=== PATIENT | female | born 1990 | race Caucasian/White ===

== ENCOUNTER 2021-11-13 10:20 | Inpatient (IN) | payer OTHER ==
[2021-11-13] MEDS ORDERED: AMPICILLIN - 2 GM in SODIUM CHLORIDE 100 ML IVPB ONE (11:00)
[2021-11-13] MEDS ORDERED: ELECTROLYTE-148 SOLN 1,000 ML IV SCH (11:00)
[2021-11-13] MEDS ORDERED: OXYTOCIN 20 UNITS in 0.9% NS 20 UNIT/1,000 ML INFUS.BAG IV ONE (11:12)
[2021-11-13] MEDS ORDERED: LIDOCAINE HCL 1% PRESERVATIVE FREE - 30ML VIAL ONE (11:24)
[2021-11-13] MEDS ORDERED: BISACODYL 10 MG SUPP.RECT RC PRN (11:40)
[2021-11-13] MEDS ORDERED: METHYLERGONOVINE MALEATE 0.2 MG/1 ML AMP IM PRN (11:40)
[2021-11-13] MEDS ORDERED: BENZOCAINE 28 GM HEMORRHOIDAL OINTMENT TP PRN (11:40)
[2021-11-13] MEDS ORDERED: WITCH HAZEL 50% (TUCKS) 40 PAD/JAR PAD TP PRN (11:40)
[2021-11-13] MEDS ORDERED: ACETAMINOPHEN 325 MG TABLET (FP) PO PRN (11:40)
[2021-11-13] MEDS ORDERED: BENZOCAINE 20% 57 GM BOTTLE TP PRN (11:40)
[2021-11-13] MEDS ORDERED: oxyCODONE HCL 5 MG TABLET PO PRN (11:40)
[2021-11-13] MEDS ORDERED: OXYTOCIN 20 UNITS in 0.9% NS 20 UNIT/1,000 ML INFUS.BAG IV SCH (11:45)
[2021-11-13 12:19] VITALS: BMI 25.0
[2021-11-13 13:02] LABS: HEMATOCRIT 38.9 % (32.4-45.2); HEMOGLOBIN 12.8 GM/dL (10.7-15.3); MCH 29.1 pg (25.7-33.7); MCHC 32.9 g/dl (32.0-36.0); MEAN CELL VOLUME 88.5 fl (80-96); MEAN PLT VOLUME 9.9 fl (7.5-11.1); PLATELET COUNT 268 10^3/uL (134-434); RBC 4.39 M/mm3 (3.60-5.2); RDW 14.3 % (11.6-15.6); WHITE BLOOD COUNT 21.6 K/mm3 (4.0-10.0)
[2021-11-13 13:08] LABS: INR 0.96 (0.83-1.09)
[2021-11-13 13:10] LABS: ACTIVATED PTT 23.9 SECONDS (25.2-36.5)
[2021-11-13 13:21] LABS: CALCIUM 8.6 mg/dL (8.5-10.1)
[2021-11-13 13:25] LABS: CREATININE 0.5 mg/dL (0.55-1.3)
[2021-11-13 14:04] LABS: ANISOCYTOSIS 0; MACROCYTOSIS 0
[2021-11-13] MEDS ORDERED: AMPICILLIN - 1 GM in SODIUM CHLORIDE 100 ML IVPB SCH (15:00)
[2021-11-13] MEDS: IBUPROFEN 600 MG TABLET (FP) PO PRN (20:52)
[2021-11-13] MEDS: SENNOSIDES/DOCUSATE COMBO (SENNA PLUS) TABLET (UD) PO PRN (20:56)
[2021-11-14] MEDS: IBUPROFEN 600 MG TABLET (FP) PO PRN ×3 (05:54→22:35)
[2021-11-14 08:10] LABS: BASO % 0.3 % (0-2.0); EOS % 0.7 % (0-4.5); HEMATOCRIT 35.3 % (32.4-45.2); HEMOGLOBIN 11.6 GM/dL (10.7-15.3); LYMPH % 16.6 % (8-40); MCH 29.1 pg (25.7-33.7); MCHC 32.8 g/dl (32.0-36.0); MEAN CELL VOLUME 88.9 fl (80-96); MEAN PLT VOLUME 9.9 fl (7.5-11.1); MONO % 7.6 % (3.8-10.2); NEUT % 74.8 % (42.8-82.8); PLATELET COUNT 277 10^3/uL (134-434); RBC 3.97 M/mm3 (3.60-5.2); RDW 14.4 % (11.6-15.6); WHITE BLOOD COUNT 12.7 K/mm3 (4.0-10.0)
[2021-11-14] MEDS: SENNOSIDES/DOCUSATE COMBO (SENNA PLUS) TABLET (UD) PO PRN (22:35)
[2021-11-15 10:10] VITALS: BP 108/57; PULSE 71; RESP 20; TEMP 98.8
[2021-11-15] MEDS: IBUPROFEN 600 MG TABLET (FP) PO PRN (10:32)
== END 2021-11-15 12:30 | disposition home or self-care (01) | DRG 560 ==
LOC: JLDR 10:20 → J3W 12:55
PROVIDERS: ADMIT Specialist; ATTEND Specialist
PROC: 10E0XZZ Delivery of Products of Conception, External Approach (ICD-10-PCS; principal; 2021-11-13)
PROC: 0W8NXZZ Division of Female Perineum, External Approach (ICD-10-PCS; 2021-11-13)
DX: O48.0 Post-term pregnancy (principal); Z3A.41 41 weeks gestation of pregnancy; Z37.0 Single live birth
CPT/HCPCS: 36415; 59025; 59409; 76819-TC; 80048; 85025; 85610; 85730; 86780; 86850; 86900; 86901; C9803-CS; U0003; U0005

== ENCOUNTER 2024-03-30 01:10 | Inpatient (IN) | payer OTHER ==
[2024-03-30] MEDS: ELECTROLYTE-148 SOLN 1,000 ML IV SCH (01:30)
[2024-03-30] MEDS ORDERED: OXYTOCIN 20 UNITS in 0.9% NS 20 UNIT/1,000 ML INFUS.BAG IV ONE (01:39)
[2024-03-30] MEDS ORDERED: LIDOCAINE HCL 1% PRESERVATIVE FREE - 30ML VIAL ONE (01:39)
[2024-03-30] MEDS ORDERED: AMPICILLIN SODIUM 2 GM VIAL ONE (01:43)
[2024-03-30] MEDS: AMPICILLIN - 2 GM in SODIUM CHLORIDE 100 ML IVPB ONE (01:45)
[2024-03-30 01:55] LABS: BASO % 0.2 % (0-2.0); EOS % 1.4 % (0-4.5); HEMATOCRIT 34.3 % (32.4-45.2); HEMOGLOBIN 11.4 GM/dL (10.7-15.3); LYMPH % 23.2 % (8-40); MCH 26.2 pg (25.7-33.7); MCHC 33.4 g/dl (32.0-36.0); MEAN CELL VOLUME 78.4 fl (80-96); MEAN PLT VOLUME 8.3 fl (7.5-11.1); NEUT % 68.2 % (42.8-82.8); PLATELET COUNT 242 10^3/uL (134-434); RBC 4.37 M/mm3 (3.60-5.2); RDW 14.1 % (11.6-15.6); WHITE BLOOD COUNT 9.4 K/mm3 (4.0-10.0)
[2024-03-30 02:05] LABS: INR 0.88 (0.83-1.09)
[2024-03-30 02:07] VITALS: BMI 24.1
[2024-03-30 02:07] LABS: ACTIVATED PTT 24.6 SECONDS (25.2-36.5)
[2024-03-30 02:18] LABS: POTASSIUM 3.4 mmol/L (3.5-5.1)
[2024-03-30 02:20] LABS: BLOOD UREA NITROGEN 10.5 mg/dL (7-18); CALCIUM 8.9 mg/dL (8.5-10.1)
[2024-03-30] MEDS: OXYTOCIN 20 UNITS in 0.9% NS 20 UNIT/1,000 ML INFUS.BAG IV SCH (02:20)
[2024-03-30 02:24] LABS: CREATININE 0.5 mg/dL (0.55-1.3)
[2024-03-30] MEDS ORDERED: BISACODYL 10 MG SUPP.RECT RC PRN (02:25)
[2024-03-30] MEDS ORDERED: METHYLERGONOVINE MALEATE 0.2 MG/1 ML AMP IM PRN (02:25)
[2024-03-30] MEDS ORDERED: BENZOCAINE 28 GM HEMORRHOIDAL OINTMENT TP PRN (02:25)
[2024-03-30] MEDS ORDERED: BENZOCAINE 20% 57 GM BOTTLE TP PRN (02:25)
[2024-03-30] MEDS ORDERED: WITCH HAZEL 50% (TUCKS) 40 PAD/JAR PAD TP PRN (02:25)
[2024-03-30] MEDS: IBUPROFEN 600 MG TABLET (FP) PO PRN (02:33)
[2024-03-30] MEDS ORDERED: oxyCODONE HCL 5 MG TABLET ONE (03:29)
[2024-03-30] MEDS: oxyCODONE HCL 5 MG TABLET PO PRN (03:30)
[2024-03-30] MEDS ORDERED: AMPICILLIN - 1 GM in SODIUM CHLORIDE 100 ML IVPB SCH (06:00)
[2024-03-30 06:36] VITALS: RESP 18
[2024-03-30] MEDS: ACETAMINOPHEN 325 MG TABLET (FP) PO PRN (16:37)
[2024-03-31 07:16] LABS: BASO % 0.4 % (0-2.0); EOS % 1.5 % (0-4.5); HEMATOCRIT 33.4 % (32.4-45.2); HEMOGLOBIN 10.6 GM/dL (10.7-15.3); LYMPH % 22.6 % (8-40); MCH 25.3 pg (25.7-33.7); MCHC 31.7 g/dl (32.0-36.0); MEAN CELL VOLUME 79.9 fl (80-96); MEAN PLT VOLUME 8.7 fl (7.5-11.1); MONO % 6.8 % (3.8-10.2); NEUT % 68.7 % (42.8-82.8); PLATELET COUNT 234 10^3/uL (134-434); RBC 4.18 M/mm3 (3.60-5.2); RDW 14.2 % (11.6-15.6); WHITE BLOOD COUNT 8.9 K/mm3 (4.0-10.0)
[2024-03-31] MEDS ORDERED: SENNOSIDES/DOCUSATE COMBO (SENNA PLUS) TABLET (UD) PO PRN (22:00)
[2024-04-01 11:05] VITALS: BP 114/64; PULSE 89; TEMP 98.1
== END 2024-04-01 13:15 | disposition home or self-care (01) | DRG 560 ==
LOC: JLDR 01:10 → J3W 04:38
PROVIDERS: ADMIT Specialist; ATTEND Specialist
PROC: 10E0XZZ Delivery of Products of Conception, External Approach (ICD-10-PCS; principal; 2024-03-30)
PROC: 0W8NXZZ Division of Female Perineum, External Approach (ICD-10-PCS; 2024-03-30)
DX: O48.0 Post-term pregnancy (principal); Z3A.40 40 weeks gestation of pregnancy; O99.824 Streptococcus B carrier state complicating childbirth; Z37.0 Single live birth
CPT/HCPCS: 36415; 59409; 80048; 85025; 85610; 85730; 86780; 86850; 86900; 86901